=== PATIENT | female | born 1975 | race Caucasian/White ===

== ENCOUNTER 2017-04-09 09:39 | Emergency (ER) | payer BC ==
[2017-04-09] MEDS ORDERED: NORMAL SALINE 1,000 ML IV ONE ×2 (09:46→11:26)
[2017-04-09 10:13] LABS: Hematocrit 36.1 % (37.0-47.0); Mean Cell Volume 87.8 fl (78-100); Mean Corpuscular Hemoglobin 29.2 pg (27-31); Mean Corpuscular Hgb Conc 33.2 g/dl (32-36); Mean Platelet Volume 12.3 fl (6.0-9.5); Neutrophil # 2.5 K/mm3 (1.3-6.0); Neutrophil % 62.8 % (42-75.0); Platelet Count 155 K/mm3 (150-450); Red Blood Count 4.11 M/mm3 (4.2-5.4); Red Cell Distribution Width 12.6 % (11.5-14.0); White Blood Count 3.9 K/mm3 (4.0-10.5)
[2017-04-09 10:24] LABS: Albumin * 3.8 gm/dl (3.4-5.0); Anion Gap 14.4 mmol/L (6.8-13.8); BUN/Creatinine Ratio 11.5 (9.0-21.6); Bilirubin, Total 0.3 mg/dL (0.0-1.1); Ca. Corrected For Albumin 8.5 mg/dL (8.4-10.2); Calcium * 8.7 mg/dL (7.9-10.9); Carbon Dioxide 22.2 mmol/L (24-32.6); Potassium 4.6 mmol/L (3.4-4.6)
[2017-04-09] MEDS ORDERED: DEXTROSE 50%-WATER 50 ML SYRG IV ONE (10:31)
[2017-04-09] MEDS ORDERED: DEXTROSE 50%-WATER 50 ML SYRG ONE (10:32)
--- NOTE | 2017-04-09 10:56 | ERNOTE ---
Neuro HPI ER Record Date of Service: 04/09/17 Presenting Symptoms: weakness, confusion Time Seen by Provider: 04/09/17 09:47 Source: patient Exam Limitations: no limitations Immunizations: IMMUNIZATION HX Immunizations Up to Date Yes History of Influenza Vaccine Yes Hx Pneumococcal Vaccination No Allergies/Adverse Reactions: Allergies Allergy/AdvReac Type Severity Reaction Status Date / Time No Known Allergies Allergy Unverified 04/09/17 09:54 Home Medications: HOME MEDICATIONS NK [No Home Medication] 04/09/17 [Last Taken Unknown] - History of Present Illness Narrative: 41-year-old female presents to the emergency room for confusion and disorientation while running a 10K. EMS states the patient was almost to the finish line when she became disoriented and confused and sat down on the grass. Patient arrived with IV fluids infusing she was alert to person and place but not time. Patient was unable to verbalize the year and she was incorrect on the president was. Patient states she has no past medical history or drug allergies at this time. She also states that she is not on any medication. Date (Duration): 04/09/17 Onset: sudden onset Severity: moderate Context: other - patient ran a 10K today - Character of Deficits New weakness: Present: general (diffuse) Altered sensation: Absent: RUE, RLE, LUE, LLE, facial (rt), facial (lt) Additional Deficits: Present: decrease ability to stand, weakness, off balance. Absent: vision problems, impaired speech, difficulty swallowing, decrease ability to walk, falling, cannot walk, cannot stand Baseline Cognition: Present: alert, oriented x 4 Baseline Gait: Present: walks w/o assistance Associated Symptoms: Reports: confused, trouble concentrating, trouble thinking Review of Systems - Review of Systems Constitutional: Present: See HPI, weakness, fatigue EYE: Present: no symptoms reported ENT: Present: no symptoms reported Respiratory: Present: no symptoms reported Cardiology: Present: no symptoms reported Gastrointestinal/Abdominal: Present: no symptoms reported Genitourinary: Present: no symptoms reported Musculoskeletal: Present: See HPI Skin: Present: no symptoms reported Neurological: Present: See HPI Endocrine: Present: no symptoms reported Hematologic/Lymphatic: Present: no symptoms reported Psych: Present: no symptoms reported All Other Systems: All systems neg except as marked - Patient's Past Medical History Patient History - Medical: No pertinent hx Patient History - Cardiac/Respiratory: No pertinent hx Patient History - Cancer: No Hx of Cancer Patient History - Surgical Procedures: T & A Patient History - Other: None LMP (females 10-50): 1 month - Social History Living Situations: spouse Abuse History: No History of abuse Psych History: No pertinent hx Smoking Status: Former smoker Have you smoked in the past 12 months: No Do you dip or chew tobacco: No Alcohol Use: occasionally Drug Use: none - Immunizations Immunizations Up to Date: Yes Hx Pneumococcal Vaccination: No History of Influenza Vaccine: Yes Physical Exam - Physical Exam General Appearance: Present: alert, no apparent distress Head Exam: Present: normal inspection, no evidence of injury Eye Exam: Normal inspection: bilateral, PERRL: bilateral, EOMI: bilateral Ears, Nose, Throat: Present: normal ENT inspection, normal pharynx Neck: Present: normal inspection, nontender Respiratory: Present: no respiratory distress, normal breath sounds, no accessory muscle use, chest nontender, lungs clear Cardiovascular/Chest: Present: regular rate, rhythm, no murmur, normal peripheral pulses Peripheral Pulses: N=norm/S=strong/W=weak/B=bound/A=absent: Dorsalis-pedis (R): Normal, Dorsalis-pedis (L): Normal Gastrointestinal/Abdominal: Present: normal bowel sounds, nontender, nondistended, soft, no organomegaly Back Exam: Present: normal inspection, normal range of motion, no CVA tenderness , no vertebral tenderness Extremity Exam: Present: normal inspection, non-tender, normal range of motion, no edema, pelvis stable. Absent: calf tenderness Neurological Exam: Present: alert, normal mood/affect, no motor/sensory deficits , sleeve setter II-XII nml as tested, disoriented to time Skin Exam: Present: normal color, diaphoresis Lymphatic Exam: Present: no adenopathy Sheryl Coma Scale - Assess Eye Opening: Spontaneous Motor: Obeys Commands Verbal: Confused - Total Coma Scale Total: 14 Initial Stroke Assessment - NIH Stroke Scale Level of Consciousness: Alert LOC Questions (Year and Age): Answers one correctly LOC Commands (open/close eyes/fist): Performs both correctly Lateral Gaze Paresis: None Visual Field Loss: No visual loss Facial Palsy: Normal movement Right Arm Motor (10 sec hold): No drift Left Arm Motor (10 sec hold): No drift Right Leg Motor (5 sec hold): No drift Left Leg Motor (5 sec hold): No drift Limb Ataxia (finger/nose heel/dela cruz): Absent Sensory Loss (pinprick arms/legs/face): No sensory loss Language Aphasia (description/naming/reading): No aphasia; normal Dysarthria (speech clarity): Normal articulation Neglect Inattention (visual/tactile/auditory/spatial/person): No neglect Initial Stroke Scale Score:: 1 - Stroke Risk Assessment Stroke Risk Assessment Level: 1-4 Mild Impairment Stroke Inclusion/Exclusion Cri - Inclusion Questions: Yes Onset of symptoms <3 1/2 hours of admission to ETC: Yes ED Progress - Results and Orders Patient's Lab Results:: I have reviewed the patient's lab results. - Vital Signs Patient's Vital Signs:: I have reviewed the patient's vital signs. Vital Signs: Vital Signs 04/09/17 04/09/17 09:48 10:34 Temperature 36.1 C L Pulse Rate 84 73 Respiratory 19 Rate Blood Pressure 107/65 O2 Sat by Pulse 94 Oximetry - EKG EKG: NSR EKG read: Reviewed by me - Progress/Reassessment Chief Complaint: Altered Mental Status Progress:: Improved Plan - Plan Plan: Patient's troponin did rise after rehydration. Patient is to be transferred to [facility] for cardiac follow-up. She denies chest pain and shortness of breath at this time. Departure Clinical Impression: Troponin level elevated - Departure Disposition: [facility] Condition: Stable
[2017-04-09 11:08] LABS: CK Total * 90 U/L (0-259); Magnesium 1.5 mg/dL (1.2-2.8); Troponin I 0.091 ng/ml (0.00-0.10)
[2017-04-09 11:25] LABS: Urine Bilirubin Negative (NEGATIVE); Urine Ketone Negative (NEGATIVE); Urine Nitrite Negative (NEGATIVE); Urine Protein 30 mg/dL (NEGATIVE); Urine Urobilinogen Normal (NORMAL)
[2017-04-09 11:36] LABS: Cocaine Ur Negative (NEGATIVE); Urine Barbiturate Negative (NEGATIVE); Urine Benzodiazepines Negative (NEGATIVE); Urine Opiates Negative (NEGATIVE); Urine PCP Negative (NEGATIVE); Urine THC Negative (NEGATIVE)
[2017-04-09 11:37] LABS: Urine Appearance Cloudy; Urine Blood 10 /ul (NEGATIVE); Urine Color Yellow
[2017-04-09 11:38] LABS: Urine Bacteria 2+; Urine RBC 0-5 /hpf (0-5); Urine WBC 0-5 /hpf (0-5)
[2017-04-09] MEDS ORDERED: ONDANSETRON HCL/PF 2 MG/ML VIAL IV ONE (13:20)
[2017-04-09] MEDS ORDERED: ONDANSETRON HCL/PF 2 MG/ML VIAL ONE (13:20)
[2017-04-09] MEDS ORDERED: ACETAMINOPHEN 500 MG TABLET PO ONE (13:44)
[2017-04-09 14:13] VITALS: BP 96/49
[2017-04-09 14:25] LABS: Albumin * 3.3 gm/dl (3.4-5.0); Anion Gap 16.7 mmol/L (6.8-13.8); BUN/Creatinine Ratio 15.7 (9.0-21.6); Bilirubin, Total 0.2 mg/dL (0.0-1.1); Ca. Corrected For Albumin 8.1 mg/dL (8.4-10.2); Calcium * 7.9 mg/dL (7.9-10.9); Carbon Dioxide 17.8 mmol/L (24-32.6); Potassium 4.5 mmol/L (3.4-4.6); Total Protein 6.4 gm/dL (6.2-8.2)
[2017-04-09 14:26] LABS: Troponin I 0.377 ng/ml (0.00-0.10)
== END 2017-04-09 15:30 | disposition short-term general hospital (02) ==
LOC: EDBD → MERGE 09:39 → ER 09:39
DX: R78.89 Finding of other specified substances, not normally found in blood (principal)
CPT/HCPCS: 36415; 80053; 80307; 81001; 82550; 82553; 83735; 83874; 84484; 84703; 85025; 87086; 93005; 96374; 96375; 99285; J2405